=== PATIENT | female | born 1990 | race African-American/Black ===

== ENCOUNTER 2018-06-13 00:34 | Emergency (ER) | payer OTHER, MEDICAID ==
[~2018-06-13] VITALS: Ht 154.9 cm; Wt 77.1 kg
[2018-06-13 01:29] LABS: URINE BILIRUBIN NEGATIVE (Negative); URINE BLOOD 3+ (Negative); URINE CLARITY CLEAR; URINE COLOR YELLOW; URINE GLUCOSE-RANDOM NEGATIVE (Negative); URINE KETONES NEGATIVE (Negative); URINE NITRITE-REFLEX NEGATIVE (Negative); URINE PROTEIN 2+ (Negative); URINE UROBILINOGEN 0.2 E.U./dl (0.2-1.0)
[2018-06-13 01:30] LABS: URINE LEUKOCYTES-REFLEX 3+ (Negative)
[2018-06-13 01:31] LABS: BACTERIA-REFLEX >30 Many /HPF (None Seen); CASTS None Seen /LPF (None Seen); CRYSTALS None Seen /LPF (None Seen); MUCUS 0-3 Light strn/LPF (None Seen); SQUAMOUS 0-3 Few /LPF (0-3); URINE RBC >20 Many /HPF (0-2); URINE WBC-REFLEX >25 Many /HPF (0-5); WBC CLUMPS Moderate (None Seen)
[2018-06-13] MEDS ORDERED: PHENAZOPYRIDIN200 M2 PO (01:34)
[2018-06-13] MEDS ORDERED: BACTRIM DS TAB1 EACH PO (01:34)
[2018-06-13] MEDS ORDERED: ZOFRAN ODT4 MG PO (01:34)
[2018-06-13 01:42] VITALS: BP 103/61
== END 2018-06-13 01:44 | disposition home or self-care (01) ==
LOC: M.ERS 00:34
PROVIDERS: Emergency Medicine Emergency Medical Services
DX: N12 Tubulo-interstitial nephritis, not specified as acute or chronic (principal); Z88.8 Allergy status to other drugs, medicaments and biological substances; Z87.440 Personal history of urinary (tract) infections

== ENCOUNTER 2018-11-30 11:21 | Emergency (ER) | payer OTHER, MEDICAID ==
[~2018-11-30] VITALS: Ht 154.9 cm; Wt 77.1 kg
[~2018-11-30 11:21] MED LIST: BACTRIM DS TAB1 EACH PO; PHENAZOPYRIDIN200 M2 PO; ZOFRAN ODT4 MG PO
[2018-11-30] MEDS ORDERED: KEFLEX500 M1 PO (12:09)
[2018-11-30 12:26] VITALS: BP 109/67
[2018-12-01] MEDS ORDERED: NORCO 5-325 TA1 EACH PO (15:11)
[2018-12-01] MEDS ORDERED: DOXYCYCLINE MO100 M1 PO (15:11)
== END 2018-11-30 12:26 | disposition home or self-care (01) ==
LOC: M.ERS 11:21
DX: L02.412 Cutaneous abscess of left axilla (principal); Z87.440 Personal history of urinary (tract) infections; Z88.8 Allergy status to other drugs, medicaments and biological substances

== ENCOUNTER 2018-12-01 11:42 | Emergency (ER) | payer OTHER, MEDICAID ==
[~2018-12-01] VITALS: Ht 154.9 cm; Wt 77.1 kg
[~2018-12-01 11:42] MED LIST changes: +KEFLEX500 M1 PO
[2018-12-01 12:40] LABS: ABSOLUTE BASOPHILS 0.1 thou/uL (0.0-0.2); ABSOLUTE EOSINOPHILS 0.1 thou/uL (0.0-0.7); ABSOLUTE LYMPHOCYTES 2.6 thou/uL (0.8-5.3); ABSOLUTE MONOCYTES 0.9 thou/uL (0.0-1.2); ABSOLUTE NEUTROPHILS 5.9 thou/uL (1.6-8.1); BASOPHILS 0.5 %; EOSINOPHILS 1.2 %; HEMATOCRIT 40.2 % (37.0-47.0); HEMOGLOBIN 13.7 gm/dL (12.0-15.0); LYMPHOCYTES 27.2 %; MCH 28.4 pg (26.0-34.0); MCV 83.4 fL (80.0-100.0); MONOCYTES 9.5 %; NUCLEATED RBCS 0 /100WBC; PLATELET COUNT* 349 thou/uL (150-400); POLYS 61.6 %; RBC 4.82 mil/uL (4.20-5.00); RDW-CV 14.7 % (10.5-14.5); WBC 9.6 thou/uL (4.0-11.0)
[2018-12-01 12:44] LABS: URINE BILIRUBIN NEGATIVE (Negative); URINE BLOOD NEGATIVE (Negative); URINE CLARITY CLEAR; URINE COLOR YELLOW; URINE GLUCOSE-RANDOM NEGATIVE (Negative); URINE KETONES NEGATIVE (Negative); URINE LEUKOCYTES-REFLEX NEGATIVE (Negative); URINE NITRITE-REFLEX NEGATIVE (Negative); URINE PROTEIN NEGATIVE (Negative); URINE UROBILINOGEN 0.2 E.U./dl (0.2-1.0)
[2018-12-01 12:59] LABS: CALCIUM 9.3 mg/dL (8.5-10.1); CREATININE 1.3 mg/dL (0.6-1.3); POTASSIUM 4.1 mmol/L (3.5-5.1)
[2018-12-01 13:04] LABS: ALBUMIN 3.6 g/dL (3.4-5.0); TOTAL BILIRUBIN 0.4 mg/dL (<0.1-1.0); TOTAL PROTEIN 8.2 g/dL (6.4-8.2)
[2018-12-01] MEDS ORDERED: DOXYCYCLINE MO100 M1 PO (15:11)
[2018-12-01] MEDS ORDERED: NORCO 5-325 TA1 EACH PO (15:11)
[2018-12-01 15:45] VITALS: BP 113/69
== END 2018-12-01 15:46 | disposition home or self-care (01) ==
LOC: M.ERS 11:42
PROVIDERS: Physician Assistant
DX: L02.412 Cutaneous abscess of left axilla (principal); N83.202 Unspecified ovarian cyst, left side; Z88.8 Allergy status to other drugs, medicaments and biological substances; Z87.440 Personal history of urinary (tract) infections

== ENCOUNTER 2019-11-03 18:34 | Emergency (ER) | payer OTHER ==
[~2019-11-03] VITALS: Ht 160 cm; Wt 63.5 kg
[~2019-11-03 18:34] MED LIST changes: +DOXYCYCLINE MO100 M1 PO; +NORCO 5-325 TA1 EACH PO
[2019-11-03 19:16] LABS: URINE BILIRUBIN NEGATIVE (Negative); URINE BLOOD NEGATIVE (Negative); URINE CLARITY CLEAR; URINE COLOR YELLOW; URINE GLUCOSE-RANDOM NEGATIVE (Negative); URINE KETONES NEGATIVE (Negative); URINE LEUKOCYTES-REFLEX NEGATIVE (Negative); URINE NITRITE-REFLEX NEGATIVE (Negative); URINE PROTEIN NEGATIVE (Negative); URINE SPECIFIC GRAVITY 1.015 (1.005-1.030)
[2019-11-03 19:24] LABS: AMP/METHAMP Negative (Negative); BARBITURATES Negative (Negative); BENZODIAZEPINES Negative (Negative); COCAINE Negative (Negative); METHADONE Negative (Negative); OPIATES Negative (Negative); PCP Negative (Negative); THC Negative (Negative)
[2019-11-03 20:55] LABS: ABSOLUTE BASOPHILS 0.1 thou/uL (0.0-0.2); ABSOLUTE EOSINOPHILS 0.1 thou/uL (0.0-0.7); ABSOLUTE LYMPHOCYTES 3.4 thou/uL (0.8-5.3); ABSOLUTE MONOCYTES 0.8 thou/uL (0.0-1.2); ABSOLUTE NEUTROPHILS 6.1 thou/uL (1.6-8.1); BASOPHILS 0.5 %; EOSINOPHILS 1.2 %; HEMATOCRIT 36.9 % (37.0-47.0); HEMOGLOBIN 12.4 gm/dL (12.0-15.0); LYMPHOCYTES 32.5 %; MCH 27.7 pg (26.0-34.0); MCHC 33.7 g/dL (28.0-37.0); MCV 82.4 fL (80.0-100.0); MONOCYTES 7.4 %; MPV 7.5 fl. (7.2-11.1); NUCLEATED RBCS 0 /100WBC; PLATELET COUNT* 322 thou/uL (150-400); POLYS 58.4 %; RBC 4.48 mil/uL (4.20-5.00); RDW-CV 15.3 % (10.5-14.5); WBC 10.4 thou/uL (4.0-11.0)
[2019-11-03 21:04] LABS: CALCIUM 8.1 mg/dL (8.5-10.1); CREATININE 1.1 mg/dL (0.6-1.3); POTASSIUM 3.7 mmol/L (3.5-5.1)
[2019-11-03 21:08] LABS: ALBUMIN 3.3 g/dL (3.4-5.0); TOTAL BILIRUBIN 0.2 mg/dL (<0.1-1.0); TOTAL PROTEIN 7.3 g/dL (6.4-8.2)
[2019-11-03 21:36] VITALS: BP 129/82
--- NOTE | 2019-11-04 12:34 | EKG ---
[place] [address] ELECTROCARDIOGRAM REPORT Name: MANE ELLIS Room: 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1990 Requested By: Pauly Carpenter Order Number: [id number] MD: Keyshawn Silva Measurements Intervals [place] Rate: 78 P: 46 CT: 154 QRS: 39 QRSD: 70 T: 22 QT: 381 QTc: 434 Interpretive Statements Sinus rhythm Low voltage, precordial leads Baseline wander in lead(s) V2 No previous ECG available for comparison Electronically Signed On 11-04-2019 12:34:07 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
== END 2019-11-03 21:37 | disposition home or self-care (01) ==
LOC: M.ERS 18:34
PROVIDERS: Nurse Practitioner Family
DX: R42 Dizziness and giddiness (principal); R53.83 Other fatigue; Z88.8 Allergy status to other drugs, medicaments and biological substances; Z98.890 Other specified postprocedural states; Z87.440 Personal history of urinary (tract) infections; Z79.899 Other long term (current) drug therapy

== ENCOUNTER 2019-11-06 16:59 | Emergency (ER) | payer OTHER ==
[~2019-11-06] VITALS: Ht 154.9 cm; Wt 78.5 kg
[2019-11-06 17:50] VITALS: BP 125/73
== END 2019-11-06 17:52 | disposition home or self-care (01) ==
LOC: M.ERS 16:59
DX: R42 Dizziness and giddiness (principal); Z98.890 Other specified postprocedural states; Z88.8 Allergy status to other drugs, medicaments and biological substances

== ENCOUNTER 2020-12-31 16:02 | Emergency (ER) | payer MEDICAID ==
[~2020-12-31] VITALS: Ht 154.9 cm; Wt 81.7 kg
[2020-12-31 16:33] LABS: HEMATOCRIT 37.6 % (37.0-47.0); HEMOGLOBIN 12.7 gm/dL (12.0-15.0); MCH 27.9 pg (26.0-34.0); MCHC 33.7 g/dL (28.0-37.0); MPV 7.1 fl. (7.2-11.1); RBC 4.54 mil/uL (4.20-5.00); RDW-CV 14.4 % (10.5-14.5); WBC 9.1 thou/uL (4.0-11.0)
[2020-12-31 16:37] LABS: CALCIUM 8.8 mg/dL (8.5-10.1); POTASSIUM 3.7 mmol/L (3.5-5.1)
[2020-12-31 16:42] LABS: ALBUMIN 3.7 g/dL (3.4-5.0); TOTAL BILIRUBIN 0.2 mg/dL (<0.1-1.0); TOTAL PROTEIN 7.9 g/dL (6.4-8.2)
[2020-12-31 17:04] LABS: URINE BILIRUBIN NEGATIVE (Negative); URINE BLOOD NEGATIVE (Negative); URINE CLARITY CLEAR; URINE COLOR YELLOW; URINE GLUCOSE-RANDOM NEGATIVE (Negative); URINE KETONES NEGATIVE (Negative); URINE LEUKOCYTES NEGATIVE (Negative); URINE NITRITE NEGATIVE (Negative); URINE PROTEIN NEGATIVE (Negative); URINE UROBILINOGEN 0.2 E.U./dl (0.2-1.0)
[2020-12-31 18:15] VITALS: BP 116/82
--- NOTE | 2021-01-01 13:46 | EKG ---
[place] [address] ELECTROCARDIOGRAM REPORT Name: MANE ELLIS Room: [facility]#: [id number] Admission: 12/31/20 Attend Phys: Discharge: 12/31/20 Date of : [birth year] Date of Service: 12/31/20 1616 Report #: [id number] THIS REPORT FOR: //name// [facility] ED Test Date: 2020-12-31 Test Time: 16:16:06 Pat Name: MANE ELLIS Department: Room: Gender: F [employer]: : 1990 Requested By: Cheikh Bess Order Number: [id number] MD: Keyshawn Silva Measurements Intervals [place] Rate: 90 P: 40 SC: 151 QRS: 13 QRSD: 82 T: 7 QT: 370 QTc: 453 Interpretive Statements Sinus rhythm Low voltage, precordial leads Compared to ECG 11/03/2019 20:18:04 No significant changes Electronically Signed On 01-01-2021 13:45:49 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 01/01/21 1345 1616 1616 Keyshawn Silva MD, [facility] /EPI
== END 2020-12-31 18:16 | disposition home or self-care (01) ==
LOC: M.ERS 16:02
PROVIDERS: Emergency Medicine
DX: R42 Dizziness and giddiness (principal); F17.210 Nicotine dependence, cigarettes, uncomplicated; Z98.890 Other specified postprocedural states; Z87.440 Personal history of urinary (tract) infections; Z88.8 Allergy status to other drugs, medicaments and biological substances